=== PATIENT | male | born 1960 | race Caucasian/White ===

== ENCOUNTER 2017-03-02 15:20 | Emergency (ER) | payer BC ==
[2017-03-02 16:22] VITALS: BP 142/80
[2017-03-02] MEDS ORDERED: Lidocaine 1% with EPINEPHrine 1:100,000 50 ML MDV INFILT ONE (16:42)
[2017-03-02] MEDS ORDERED: Bacitracin Oint 1 GM U/D Packet TOP ONE (16:42)
--- NOTE | 2017-03-02 16:46 | EDM.PDOC ---
ED HPI GENERAL MEDICAL PROBLEM - General Chief Complaint: Laceration Stated Complaint: RIGHT HEEL LACERATION Time Seen by Provider: 03/02/17 16:20 Source of Information: Reports: Patient History Limitations: Reports: No Limitations - History of Present Illness INITIAL COMMENTS - FREE TEXT/NARRATIVE: 56 yo male presents after cutting heel [place] piece of [place] He did pull the piece of glass out of his foot. he is generally healthy and his tetanus is up to date. bleeding is controlled - Related Data Allergies Allergy/AdvReac Type Severity Reaction Status Date / Time No Known Allergies Allergy Verified 03/02/17 16:20 Home Meds: Home Meds NK [No Known Home Meds] 03/02/17 [History] Past Medical History - Past Health History Medical/Surgical History: Denies Medical/Surgical History Social & Family History - Caffeine Use Caffeine Use: Reports: Coffee - Recreational Drug Use Recreational Drug Use: No ED ROS GENERAL - Review of Systems Review Of Systems: See Below Constitutional: Denies: Fever, Chills Respiratory: Denies: Shortness of Breath, Wheezing Cardiovascular: Denies: Chest Pain ED EXAM, SKIN/RASH Exam: See Below Exam Limited By: No Limitations General Appearance: Alert, WD/WN, No Apparent Distress Respiratory/Chest: No Respiratory Distress Skin: Warm, Dry, Intact, Other (right heel laceration 1.5 cm puncture wound, neuro intact surounding injury no tendon involvement) ED SKIN PROCEDURES - Laceration/Wound Repair Right Foot Lac/Wound length In cm: 1.5 (1 cm deep) Appearance: Superficial, Subcutaneous Anesthetic Type: Local Local Anesthesia - Lidocaine (Xylocaine): 1% With EPI Local Anesthetic Volume: 4cc Skin Prep: Chlorhexidine (Hibiciens), Saline, Sterile Drape Saline Irrigation (cc's): 250 Exploration/Debridement/Repair: Wound Explored, in a Bloodless Field, Explored to Base, Minimal Debridement, No Foreign Material Found Closed with: Sutures Suture Size: 3-0 # of Sutures: 3 Suture Type: Nylon, Interrupted, Mattress Sterile Dressing Applied: Nurse Tetanus Status Addressed: Yes Complications: No Course - Vital Signs Last Recorded V/S: Last Vital Signs Temp 36.7 C 03/02/17 16:25 Pulse 78 03/02/17 16:25 Resp 16 03/02/17 16:25 BP 142/80 H 03/02/17 16:25 Pulse Ox 96 03/02/17 16:25 - Orders/Labs/Meds Meds: Medications Discontinued Medications Generic Name Dose Route Start Last Admin Trade Name Keyur PRN Reason Stop Dose Admin Bacitracin 1 dose 03/02/17 16:42 03/02/17 16:48 Bacitracin Oint 1 Gm TOP 03/02/17 16:43 1 dose ONETIME ONE Administration Lidocaine/Epinephrine 5 ml 03/02/17 16:42 03/02/17 16:48 Xylocaine 1% With Epinephrine 1:100,000 INFILT 03/02/17 16:43 5 ml ONETIME ONE Administration - Re-Assessments/Exams Free Text/Narrative Re-Assessment/Exam: 03/02/17 22:43 tetanus updated today. puncture wound irrigated with canal flushing no foreign material found. closed without difficulty Departure - Departure Time of Disposition: 18:13 Disposition: Home, Self-Care 01 Condition: Good Clinical Impression: Laceration of foot Qualifiers: Encounter type: initial encounter Laterality: left Qualified Code(s): S91.312A - Laceration without foreign body, left foot, initial encounter - Discharge Information Instructions: Sutured Wound Care, [id number] Referrals: PCP,None [Primary Care Provider] - Forms: ED Department Discharge Additional Instructions: sutures our in 9 days wash with warm soapy water observe for signs of infection - fire engine red, purulent discharge, or increase in pain
== END 2017-03-02 18:40 | disposition home or self-care (01) ==
LOC: JP.ED 15:20
DX: S91.311A Laceration without foreign body, right foot, initial encounter (principal); W25.XXXA Contact with sharp glass, initial encounter; Y92.828 Other wilderness area as the place of occurrence of the external cause
CPT/HCPCS: 12001; 99283-25